=== PATIENT | male | born 1995 | race Caucasian/White ===

== ENCOUNTER 2017-10-04 15:53 | Emergency (ER) | payer OTHER ==
[~2017-10-04] VITALS: Ht 177.8 cm; Wt 85.0 kg
[2017-10-04 15:54] VITALS: BP 143/97
== END 2017-10-04 16:00 | disposition left against medical advice (07) ==
LOC: M ED 15:53
DX: S89.90XA Unspecified injury of unspecified lower leg, initial encounter (principal); Z53.21 Procedure and treatment not carried out due to patient leaving prior to being seen by health care provider